=== PATIENT | female | born 1970 | race American Indian/Alaskan Native ===

== ENCOUNTER 2018-01-27 14:15 | Emergency (ER) | payer OTHER ==
[2018-01-27 14:33] VITALS: BP 126/55
[2018-01-27] MEDS ORDERED: MOTRIN PO ONE (19:01)
--- NOTE | 2018-01-27 19:07 | Emergency Department Report ---
Chief Complaint: Urogenital-Female Stated Complaint: BLADDER Time Seen by Provider: 01/27/18 18:29 - HPI History of Present Illness: The patient is a 47-year-old female presents for evaluation of UTI like symptoms. The patient reports 2 days of dysuria, increased urinary frequency, and mild cramping lower abdominal pain. The patient denies fever, chills, night sweats, diarrhea, blood in the stool, dark tarry stool, genital discharge, inability to pass flatus. `` - Exam Vital Signs: Vital Signs 01/27/18 14:29 Temperature 97.5 F L Pulse Rate 86 Respiratory 20 Rate Blood Pressure 126/55 O2 Sat by Pulse 100 Oximetry MSE screening note: Focused history and physical exam performed. Due to findings the following was ordered: ED Disposition for MSE Condition: Stable
--- NOTE | 2018-01-27 19:22 | Emergency Department Report ---
ED Female HPI - General Chief complaint: Urogenital-Female Stated complaint: BLADDER Time Seen by Provider: 01/27/18 18:29 Source: patient Mode of arrival: Ambulatory Limitations: No Limitations - Related Data Previous Rx's Medication Instructions Recorded Last Taken Type Acetaminophen [Acetaminophen TAB] 500 mg PO Q6HR PRN #25 tablet 01/27/18 Unknown Rx Phenazopyridine [Pyridium] 100 mg PO TID #6 tab 01/27/18 Unknown Rx Sulfamethoxazole/Trimethoprim 1 each PO BID #14 tablet 01/27/18 Unknown Rx [Bactrim Ds Tablet] Allergies Allergy/AdvReac Type Severity Reaction Status Date / Time hydrocodone Allergy Rash Verified 01/27/18 14:29 ED Review of Systems ROS: Stated complaint: BLADDER Other details as noted in HPI ED Past Medical Hx - Past Medical History Previous Medical History?: No - Surgical History Past Surgical History?: Yes Additional Surgical History: fibroid removal from cervix - Social History Smoking Status: Never Smoker Substance Use Type: Alcohol, Prescribed - Medications Home Medications: Home Medications Medication Instructions Recorded Confirmed Last Taken Type Acetaminophen [Acetaminophen TAB] 500 mg PO Q6HR PRN #25 tablet 01/27/18 Unknown Rx Phenazopyridine [Pyridium] 100 mg PO TID #6 tab 01/27/18 Unknown Rx Sulfamethoxazole/Trimethoprim 1 each PO BID #14 tablet 01/27/18 Unknown Rx [Bactrim Ds Tablet] ED Physical Exam - General Limitations: No Limitations ED Course Vital Signs 01/27/18 14:29 Temperature 97.5 F L Pulse Rate 86 Respiratory 20 Rate Blood Pressure 126/55 O2 Sat by Pulse 100 Oximetry ED Medical Decision Making - Medical Decision Making A/P: Suspected urinary tract infection 1-urinalysis and urine culture collected and sent 2-pt empirically treated with Bactrim 3-follow-up with primary care 4- as patient left before urinalysis result she signed out AMA. I informed her that I would still treat her empirically for urinary tract infection. I discussed this with Dr. Roche before discharge. Critical care attestation.: If time is entered above; I have spent that time in minutes in the direct care of this critically ill patient, excluding procedure time. ED Disposition Clinical Impression: Urinary tract infection Qualifiers: Urinary tract infection type: acute cystitis Hematuria presence: without hematuria Qualified Code(s): N30.00 - Acute cystitis without hematuria Disposition: DC-07 LEFT AGAINST MED ADVICE Is pt being admited?: No Does the pt Need Aspirin: No Condition: Stable Instructions: Urinary Tract Infection in Women (ED), Dysuria (ED) Prescriptions: Acetaminophen [Acetaminophen TAB] 500 mg PO Q6HR PRN #25 tablet PRN Reason: Fever Phenazopyridine [Pyridium] 100 mg PO TID #6 tab Sulfamethoxazole/Trimethoprim [Bactrim Ds Tablet] 1 each PO BID #14 tablet Forms: AMA Form, Work/School Release Form(ED) Time of Disposition: 19:20
[2018-01-27 20:14] LABS: HCG Qualitative,Urine Negative (Negative)
[2018-01-27 20:18] LABS: Bacteria,Urine 2+ /HPF (Negative); Bilirubin,Urine NEG (Negative); Blood,Urine NEG (Negative); Color,Urine Yellow (Yellow); Protein,Urine <15 mg/dL mg/dL (Negative)
== END 2018-01-27 19:21 | disposition left against medical advice (07) ==
LOC: ED 14:15
DX: N39.0 Urinary tract infection, site not specified (principal)
CPT/HCPCS: 81001; 81025; 87086; 99283